=== PATIENT | female | born 1995 | race Caucasian/White ===

== ENCOUNTER 2017-05-16 06:29 | Emergency (ER) | payer OTHER ==
[~2017-05-16] VITALS: Ht 175.3 cm; Wt 69.8 kg
[2017-05-16 06:30] VITALS: BP 136/87
== END 2017-05-16 08:56 | disposition home or self-care (01) ==
LOC: ED 07:45
DX: N93.8 Other specified abnormal uterine and vaginal bleeding (principal); F15.129 Other stimulant abuse with intoxication, unspecified; F12.129 Cannabis abuse with intoxication, unspecified; F17.210 Nicotine dependence, cigarettes, uncomplicated; F11.129 Opioid abuse with intoxication, unspecified
CPT/HCPCS: 36415; 76830; 84703; 85025; 99285

== ENCOUNTER 2017-09-19 16:14 | Emergency (ER) | payer OTHER ==
[~2017-09-19] VITALS: Ht 175.3 cm; Wt 71.4 kg
[2017-09-19 16:29] VITALS: BP 129/77
[2017-09-19] MEDS ORDERED: FAMOTIDINE 20 MG TABLET ONE (17:25)
[2017-09-19] MEDS ORDERED: FAMOTIDINE 20 MG TABLET PO ONE (17:30)
== END 2017-09-19 17:39 | disposition home or self-care (01) ==
LOC: ED 17:33
DX: L27.0 Generalized skin eruption due to drugs and medicaments taken internally (principal)
CPT/HCPCS: 99284; J7512; Q0177

== ENCOUNTER 2018-04-18 02:05 | Emergency (ER) | payer OTHER ==
[~2018-04-18] VITALS: Ht 175.3 cm; Wt 73.0 kg
[2018-04-18 02:07] VITALS: BP 127/80
[2018-04-18] MEDS ORDERED: LIDOCAINE-MPF 2% ,5ML ONE (02:54)
[2018-04-18] MEDS ORDERED: LIDOCAINE-MPF 2% ,5ML SQ ONE (03:00)
== END 2018-04-18 04:15 | disposition home or self-care (01) ==
LOC: ED 04:10
DX: K02.9 Dental caries, unspecified (principal); K04.7 Periapical abscess without sinus; F17.200 Nicotine dependence, unspecified, uncomplicated
CPT/HCPCS: 41800; 99283